=== PATIENT | male | born 1950 | race Caucasian/White ===

== ENCOUNTER 2019-03-10 02:36 | Emergency (ER) | payer MEDICARE ==
[~2019-03-10] VITALS: Ht 170.2 cm; Wt 72.7 kg
[2019-03-10] MEDS ORDERED: ONDANSETRON 2MG/ML, 2ML ONE (02:55)
[2019-03-10] MEDS ORDERED: MORPHINE SULFATE 4 MG/ML, 1ML ONE ×2 (02:56→04:40)
[2019-03-10] MEDS ORDERED: ONDANSETRON 2MG/ML, 2ML IVPush ONE (03:00)
[2019-03-10] MEDS: MORPHINE SULFATE 4 MG/ML, 1ML IVPush PRN ×2 (03:07→04:44)
[2019-03-10 03:16] LABS: BASOPHILS # (AUTO) 0.01 x10^3/uL (0-0.1); BASOPHILS % (AUTO) 0 % (0-1); EOSINOPHILS # (AUTO) 0.09 x10^3/uL (0-0.4); EOSINOPHILS % (AUTO) 1 % (1-7); LYMPHOCYTES # (AUTO) 1.34 x10^3/uL (1-3.4); LYMPHOCYTES % (AUTO) 19 % (22-44); MD NO; MEAN CORPUSCULAR HEMOGLOBIN 30.4 pg (27.5-34.5); MEAN CORPUSCULAR HGB CONC 32.9 g/dL (33.2-36.2); MEAN CORPUSCULAR VOLUME 92.4 fL (81-97); MEAN PLATELET VOLUME 8.4 fL (7.4-10.4); MONOCYTES % (AUTO) 7 % (2-9); NEUTROPHILS # (AUTO) 4.93 x10^3/uL (1.8-6.8); NEUTROPHILS % (AUTO) 72 % (42-75); PLATELET COUNT 196 x10^3/uL (130-400); RED BLOOD COUNT 4.29 x10^6/uL (4.38-5.82); RED CELL DISTRIBUTION WIDTH 14.3 % (9.4-14.8)
[2019-03-10 03:19] LABS: ALANINE AMINOTRANSFERASE 21 U/L (12-78); ALBUMIN 3.1 g/dL (3.4-5.0); ANION GAP 6 mmol/L (5-15); CALCIUM 8.4 mg/dL (8.5-10.1); CHLORIDE 114 mmol/L (98-107); CREATININE 1.07 mg/dL (0.7-1.3)
--- NOTE | 2019-03-10 03:20 | NUR ---
PT STATES RELIEF FROM PAIN POST MEDS. POC DISCUSSED. PT AND FMAILY DENY FURTHER NEEDS AT THIS TIME. CALL LIGHT ON LAP.
[2019-03-10 03:21] LABS: ALKALINE PHOSPHATASE 74 U/L (45-117); BILIRUBIN,TOTAL 1.3 mg/dL (0.2-1.0); TOTAL PROTEIN 6.1 g/dL (6.4-8.2)
[2019-03-10 03:29] LABS: MICROSCOPIC AUTO
[2019-03-10 03:31] LABS: CULTURE INDICATED? NO
[2019-03-10 04:32] VITALS: BP 119/64
[2019-03-10] MEDS ORDERED: KETOROLAC 60 MG/2 ML ONE (04:40)
[2019-03-10] MEDS ORDERED: KETOROLAC 30 MG/1 ML IVPush ONE (05:00)
== END 2019-03-10 05:24 | disposition home or self-care (01) ==
LOC: ED 05:18
DX: N20.2 Calculus of kidney with calculus of ureter (principal)
CPT/HCPCS: 36415; 80053; 81001; 83690; 85025; 96374; 96375; 96376; 99283; J1885; J2270; J2405